=== PATIENT | female | born 1970 | race Caucasian/White ===

== ENCOUNTER 2017-05-24 11:40 | Emergency (ER) | payer BC ==
[~2017-05-24] VITALS: Ht 188 cm; Wt 100.7 kg
[~2017-05-24 11:40] MED LIST: ANTIVERT25 MG PO; CLARITIN,ALAVAR10 MG PO; FLONASE16 G1 BOTH NARES; HEMOCYTE324 MG PO; MUCINEX D ER T1 EACH PO; SINGULAIR10 MG PO
[2017-05-24 12:04] LABS: HEMATOCRIT 37.1 % (36.0-46.0); MCH 30.7 PG (29.0-34.0); MCV 87.5 FL (83-99); PLATELET COUNT 272 K/uL (156-360); RBC DIS.WIDTH-CV 12.5 % (11.8-14.6); RBC DIS.WIDTH-SD 39.6 % (39-53); RED BLOOD COUNT 4.24 M/uL (3.80-5.20); WHITE BLOOD COUNT 5.6 K/uL (4.1-10.2)
[2017-05-24 12:12] LABS: CHLORIDE 104 mEq/L (99-109); SODIUM 142 mEq/L (136-147)
[2017-05-24 12:14] LABS: GLUCOSE 108 mg/dL (70-99)
[2017-05-24 12:18] LABS: CREATININE 0.9 mg/dL (0.6-1.3); GFR ESTIMATE (CALCULATED) > 59 mL/min/; UREA NITROGEN (BUN) 9 mg/dL (9-23)
[2017-05-24 13:04] LABS: APPEARANCE SL.HAZY ((CLEAR)); BILIRUBIN NEGATIVE; BLOOD NEGATIVE; COLOR YELLOW ((YELLOW)); GLUCOSE (STRIP) NEGATIVE; KETONES NEGATIVE; LEUKOCYTES MODERATE; NITRITE NEGATIVE; PROTEIN (STRIP) NEGATIVE; SPECIFIC GRAVITY 1.012 (1.000-1.030); UROBILINOGEN 0.2 MG/DL (0.2-1.0)
[2017-05-24 13:08] LABS: BACTERIA NONE SEEN /HPF; EPITHELIAL CELLS 1+ /HPF; MUCUS TRACE /LPF; RED BLOOD CELLS 0-5 /HPF (0-5); UCUL ADDED? NO; WHITE BLOOD CELLS 0-5 /HPF (0-5)
[2017-05-24 13:25] LABS: QUANTITATIVE HCG < 4.0 MIU/ML
[2017-05-24 14:03] VITALS: BP 121/76
== END 2017-05-24 14:10 | disposition home or self-care (01) ==
LOC: EME 11:40
DX: N39.0 Urinary tract infection, site not specified (principal); Z97.5 Presence of (intrauterine) contraceptive device; Z88.0 Allergy status to penicillin
CPT/HCPCS: 74176; 80048; 81003; 84702; 85027; 99281; 99283